=== PATIENT | female | born 1955 | race Caucasian/White ===

== ENCOUNTER 2021-08-05 10:31 | Emergency (ER) | payer MEDICAID, OTHER ==
[2021-08-05] MEDS ORDERED: oxyCODONE 5 MG Tab PO ONE (11:39)
== END 2021-08-05 16:00 | disposition home or self-care (01) ==
LOC: JP.ED 10:31
DX: G89.3 Neoplasm related pain (acute) (chronic) (principal); M89.8X9 Other specified disorders of bone, unspecified site; J91.0 Malignant pleural effusion; R09.02 Hypoxemia; Z87.891 Personal history of nicotine dependence
CPT/HCPCS: 71045; 71046; 73501; 73552; 99285; A9270